=== PATIENT | male | born 1970 | race Caucasian/White ===

== ENCOUNTER 2017-12-04 21:15 | Emergency (ER) | payer SELFPAY ==
[~2017-12-04] VITALS: Ht 175.3 cm; Wt 97.5 kg
[~2017-12-04 21:15] MED LIST: ALPR.5T PO; ASCO500T20 PO; AZIT-21 PO; CHOL2000 PO; CYCL10TA9 PO; FLT05NA16 NSEACH; HYDR1TAB PO; HYDR25CA5 PO; NAPR550T PO; OMG1KC PO
--- OUTSIDE RECORDS SUMMARY | 2017-12-04 21:20 | XMS REPORT ---
Author Author CASEY WADE Organization [employer] Address Unknown Phone Unavailable Care Team Providers Care Towing Pilot Name Role Phone CASEY WADE CP Unavailable Allergies, Adverse Reactions, Alerts Substance Reaction Event Type Doxycycline Info Not Available Drug Allergy Augmentin Info Not Available Drug Allergy Problems Problem Type Condition Code Onset Dates Condition Status Problem Dermatophytosis of groin and perianal area 110.3 Active Problem Unspecified episodic mood disorder 296.90 Active Problem Acute serous otitis media 381.01 Active Assessment Epididymitis N45.1 Active Problem Unspecified vitamin D deficiency 268.9 Active Problem Other and unspecified hyperlipidemia 272.4 Active Medications Medication Code System Code Instructions Start Date End Date Status Dosage Levaquin [facility] [address]-52 500 MG Orally Once a day April 17, 2016March 1 tablet Procedures Procedure Coding System Code Date Office Visit, Est Pt., Level 3 CPT-4 29346 April 17, 2016 Vital Signs Date/Time: April 17, 2016 Cardiac Monitoring Heart Rate 80 bpm Weight 226.2 lbs Height 69 in Blood Pressure Diastolic 84 mmHg Blood Pressure Systolic 126 mmHg Results No Known Results Summary Purpose [employer] Submission
--- OUTSIDE RECORDS SUMMARY | 2017-12-04 21:20 | XMS REPORT ---
Author Author JEFF IRELAND [facility] Address [address] [place] [address] Care Team Providers Care Clinical Education Academic Coordinator Name Role Phone SHU JEFF Unavailable PROBLEMS Type Condition ICD9-CM Code [id number] Code Onset Dates Condition Status SNOMED Code Problem Hypoglycemia E16.2 Active [id number] ALLERGIES Substance Reaction Event Type Date Status Doxycycline Unknown Drug Allergy Oct, Active Sulfazine vomiting Drug Allergy Oct, Active Augmentin Unknown Drug Allergy Oct, Active SOCIAL HISTORY Never Assessed PLAN OF CARE VITAL SIGNS Height 69 in 2016-11-05 Weight 226.1 lbs 2016-11-05 Temperature 97.7 degrees Fahrenheit 2016-11-05 Heart Rate 78 bpm 2016-11-05 Respiratory Rate 20 2016-11-05 BMI 33.39 kg/m2 2016-11-05 Blood pressure systolic 122 mmHg 2016-11-05 Blood pressure diastolic 82 mmHg 2016-11-05 MEDICATIONS Medication Instructions Dosage Frequency Start Date End Date Duration Status Keflex 500 MG Orally Four times a day 1 capsule 6h Oct, Oct, 10 day(s) Active RESULTS No Results PROCEDURES No Known procedures IMMUNIZATIONS No Known Immunizations MEDICAL (GENERAL) HISTORY Type Description Date Surgical History tonsillectomy and adenoidectomy
--- OUTSIDE RECORDS SUMMARY | 2017-12-04 21:20 | XMS REPORT ---
Author JEFF Goldberg Organization [employer] Address Unknown Phone Unavailable Care Team Providers Care Sock Lining Examiner Name Role Phone JEFF IRELAND CP Unavailable Allergies, Adverse Reactions, Alerts Substance Reaction Event Type Doxycycline Info Not Available Drug Allergy Augmentin Info Not Available Drug Allergy Problems Problem Type Condition Code Onset Dates Condition Status Problem Dermatophytosis of groin and perianal area 110.3 Active Problem Unspecified episodic mood disorder 296.90 Active Problem Acute serous otitis media 381.01 Active Assessment Bronchitis J40 Active Problem Unspecified vitamin D deficiency 268.9 Active Problem Other and unspecified hyperlipidemia 272.4 Active Medications Medication Code System Code Instructions Start Date End Date Status Dosage Keflex [facility] [address]-97 500 MG Orally Four times a day Aug 06, 2016 Aug 16, 2016 1 capsule PredniSONE [facility] [address]-70 20 mg Orally Once a day Aug 06, 2016 Aug 11, 2016 2 tablets Procedures Procedure Coding System Code Date Office Visit, Est Pt., Level 3 CPT-4 58685 Aug 06, 2016 Vital Signs Date/Time: Aug 06, 2016 Cardiac Monitoring Heart Rate 76 bpm Weight 233.6 lbs Height 69 in BMI 34.49 Index Blood Pressure Diastolic 84 mmHg Blood Pressure Systolic 132 mmHg Results No Known Results Summary Purpose [employer] Submission
--- OUTSIDE RECORDS SUMMARY | 2017-12-04 21:21 | XMS REPORT | Continuity of Care Document ---
Author Author [facility] Address Unknown Phone Unavailable Allergies Active Description Code Type Severity Reaction Onset Reported/Identified Relationship to Patient Clinical Status Yes Augmentin Drug Allergy 01/25/2009 Yes Augmentin Drug Allergy N/A N/A 01/25/2009 Yes sulfa drug Drug Allergy 01/25/2009 Yes amoxicillin [id number] Drug Allergy Mild N/A 10/30/2009 Yes clavulanic acid [id number] Drug Allergy Mild N/A 10/30/2009 Yes diphenhydramine [id number] Drug Allergy Mild N/A 10/30/2009 Yes prochlorperazine edisylate [id number] Drug Allergy Unknown N/A 2011 Yes prochlorperazine maleate [id number] Drug Allergy Unknown N/A 08/06/2012 Yes doxycycline [id number] Drug Allergy Mild N/A 12/08/2012 Yes levofloxacin [id number] Drug Allergy Mild N/A 12/08/2012 Yes hydroxyzine HCl [id number] Drug Allergy Unknown N/A 06/04/2013 Yes hydroxyzine pamoate [id number] Drug Allergy Unknown N/A 06/04/2013 Medications There is no data. Problems Date Dx Coded Attending Type Code Diagnosis Diagnosed By 05/12/2008 JEFF IRELAND APRN V58.69 MEDICATION HIGH RISK 05/12/2008 V58.69 MEDICATION HIGH RISK 05/12/2008 V58.69 MEDICATION HIGH RISK 05/12/2008 ANGELA BUSH DO V58.69 MEDICATION HIGH RISK 05/12/2008 ANGELA BUSH DO V58.69 MEDICATION HIGH RISK 05/12/2008 JEFF IRELAND APRN V58.69 MEDICATION HIGH RISK 06/03/2008 JEFF IRELAND APRN 300.01 AN PANIC DIS W/O AGORA 06/03/2008 300.01 AN PANIC DIS W/O AGORA 06/03/2008 300.01 AN PANIC DIS W/O AGORA 06/03/2008 ANGELA BUSH DO 300.01 AN PANIC DIS W/O AGORA 06/03/2008 ANGELA BUSH DO 300.01 AN PANIC DIS W/O AGORA 06/03/2008 JEFF IRELAND APRN 300.01 AN PANIC DIS W/O AGORA 01/25/2009 JEFF IRELAND APRN 789.00 abdominal pain 01/25/2009 789.00 ABDOMINAL PAIN 01/25/2009 789.00 ABDOMINAL PAIN 01/25/2009 ANGELA BUSH DO 789.00 ABDOMINAL PAIN 01/25/2009 ANGELA BUSH DO 789.00 ABDOMINAL PAIN 01/25/2009 JEFF IRELAND APRN 789.00 abdominal pain 05/11/2009 JEFF IRELAND APRN 919.5 INSECT BITE INFECTED 05/11/2009 919.5 INSECT BITE INFECTED 05/11/2009 919.5 INSECT BITE INFECTED 05/11/2009 ANGELA BUSH DO 919.5 INSECT BITE INFECTED 05/11/2009 ANGELA BUSH DO 919.5 INSECT BITE INFECTED 05/11/2009 JEFF IRELAND APRN 919.5 INSECT BITE INFECTED 06/07/2009 JEFF IRELAND APRN V04.81 FLU SHOT 06/07/2009 V04.81 FLU SHOT 06/07/2009 V04.81 FLU SHOT 06/07/2009 ANGELA BUSH DO V04.81 FLU SHOT 06/07/2009 ANGELA BUSH DO V04.81 FLU SHOT 06/07/2009 JEFF IRELAND APRN V04.81 FLU SHOT 06/22/2009 JEFF IRELAND APRN V03.82 PCV7 PCV23, STREPTOCOCCUS PNEUMONIAE [PNEUMOCOCCUS] 06/22/2009 V03.82 PCV7 PCV23, STREPTOCOCCUS PNEUMONIAE [PNEUMOCOCCUS] 06/22/2009 V03.82 PCV7 PCV23, STREPTOCOCCUS PNEUMONIAE [PNEUMOCOCCUS] 06/22/2009 ANGELA BUSH DO V03.82 PCV7 PCV23, STREPTOCOCCUS PNEUMONIAE [PNEUMOCOCCUS] 06/22/2009 ANGELA BUSH DO V03.82 PCV7 PCV23, STREPTOCOCCUS PNEUMONIAE [PNEUMOCOCCUS] 06/22/2009 JEFF IRELAND APRN V03.82 PCV7 PCV23, STREPTOCOCCUS PNEUMONIAE [PNEUMOCOCCUS] 08/27/2009 JEFF IRELAND APRN 461.9 ACUTE SINUSITIS, UNSPECIFIED 08/27/2009 461.9 ACUTE SINUSITIS, UNSPECIFIED 08/27/2009 461.9 ACUTE SINUSITIS, UNSPECIFIED 08/27/2009 EMERSON BUSH DOA K 461.9 ACUTE SINUSITIS, UNSPECIFIED 08/27/2009 BUSH DO, ANGELA K 461.9 ACUTE SINUSITIS, UNSPECIFIED 08/27/2009 JEFF IRELAND APRN 461.9 ACUTE SINUSITIS, UNSPECIFIED 10/10/2009 JEFF IRELAND APRN 382.00 OTITIS MEDIA ACUTE WITHOUT SPONTANEOUS RUPTURE EARDRUM 10/10/2009 382.00 OTITIS MEDIA ACUTE WITHOUT SPONTANEOUS RUPTURE EARDRUM 10/10/2009 382.00 OTITIS MEDIA ACUTE WITHOUT SPONTANEOUS RUPTURE EARDRUM 10/10/2009 EMERSON BUSH DOA K 382.00 OTITIS MEDIA ACUTE WITHOUT SPONTANEOUS RUPTURE EARDRUM 10/10/2009 RACHELLE OBANDO ANGELA K 382.00 OTITIS MEDIA ACUTE WITHOUT SPONTANEOUS RUPTURE EARDRUM 10/10/2009 JEFF IRELAND APRN 382.00 OTITIS MEDIA ACUTE WITHOUT SPONTANEOUS RUPTURE EARDRUM 11/18/2009 JEFF IRELAND APRN 780.79 MALAISE AND FATIGUE 11/18/2009 780.79 MALAISE AND FATIGUE 11/18/2009 780.79 MALAISE AND FATIGUE 11/18/2009 RACHELLE OBANDO ANGELA K 780.79 MALAISE AND FATIGUE 11/18/2009 RACHELLE OBANDO ANGELA K 780.79 MALAISE AND FATIGUE 11/18/2009 JEFF IRELAND APRN 780.79 MALAISE AND FATIGUE 03/30/2010 JEFF IRELAND APRN 382.9 UNSPECIFIED OTITIS MEDIA 03/30/2010 382.9 UNSPECIFIED OTITIS MEDIA 03/30/2010 382.9 UNSPECIFIED OTITIS MEDIA 03/30/2010 EMERSON BUSH DOA K 382.9 UNSPECIFIED OTITIS MEDIA 03/30/2010 RACHELLE OBANDO ANGELA K 382.9 UNSPECIFIED OTITIS MEDIA 03/30/2010 JEFF IRELAND APRN 382.9 UNSPECIFIED OTITIS MEDIA 05/23/2010 JEFF IRELAND APRN 455.6 HEMORRHOIDS NOS 05/23/2010 455.6 HEMORRHOIDS NOS 05/23/2010 455.6 HEMORRHOIDS NOS 05/23/2010 EMERSON BUSH DOA K 455.6 HEMORRHOIDS NOS 05/23/2010 RACHELLE OBANDO ANGELA K 455.6 HEMORRHOIDS NOS 05/23/2010 JEFF IRELAND APRN 455.6 HEMORRHOIDS NOS 08/06/2012 Ot 300.00 ANXIETY STATE NOS 08/06/2012 Ot 300.01 PANIC DISORDER WITHOUT AGORAPHOBIA 09/26/2012 JEFF IRELAND APRN 268.9 VITAMIN D DEFICIENCY 09/26/2012 JEFF IRELAND APRN 272.4 HYPERLIPIDEMIA 09/26/2012 268.9 VITAMIN D DEFICIENCY 09/26/2012 272.4 HYPERLIPIDEMIA 09/26/2012 268.9 VITAMIN D DEFICIENCY 09/26/2012 272.4 HYPERLIPIDEMIA 09/26/2012 BUSH DO, ANGELA K 268.9 VITAMIN D DEFICIENCY 09/26/2012 BUSH DO, ANGELA K 272.4 HYPERLIPIDEMIA 09/26/2012 BUSH DO, ANGELA K 268.9 VITAMIN D DEFICIENCY 09/26/2012 BUSH DO, ANGELA K 272.4 HYPERLIPIDEMIA 12/08/2012 Ot 466.0 ACUTE BRONCHITIS 12/08/2012 Ot 780.60 FEVER, UNSPECIFIED 03/03/2013 110.3 DERMATOPHYTOSIS OF GROIN AND PERIANAL AREA 03/03/2013 381.01 ACUTE SEROUS OTITIS MEDIA 03/03/2013 BUSH DO, ANGELA K 110.3 DERMATOPHYTOSIS OF GROIN AND PERIANAL AREA 03/03/2013 BUSH DO, ANGELA K 381.01 ACUTE SEROUS OTITIS MEDIA 03/03/2013 BUSH DO, ANGELA K 110.3 DERMATOPHYTOSIS OF GROIN AND PERIANAL AREA 03/03/2013 BUSH DO, ANGELA K 381.01 ACUTE SEROUS OTITIS MEDIA 06/05/2013 LEONA , JULIANA K Ot 300.00 ANXIETY STATE NOS 06/05/2013 LEONA OBANDO JULIANA K Ot 786.50 CHEST PAIN NOS 06/05/2013 LEONA , JULIANA K Ot 786.52 PAINFUL RESPIRATION 07/03/2013 BUSH DO, ANGELA K 296.90 MOOD DISORDER 07/03/2013 BUSH DO, ANGELA K 296.90 MOOD DISORDER 08/25/2013 KAREN CHRISTIANSON MD Ot 300.00 ANXIETY STATE NOS 08/25/2013 KAREN CHRISTIANSON MD Ot 465.9 ACUTE URI NOS 03/05/2016 YANIV HARKINS MD Ot 300.4 DYSTHYMIC DISORDER 03/05/2016 YANIV HARKINS MD Ot 397.0 TRICUSPID VALVE DISEASE 03/05/2016 YANIV HARKINS MD Ot 424.0 MITRAL VALVE DISORDER 03/05/2016 YANIV HARKINS MD Ot 785.1 PALPITATIONS Procedures Code Description [place] [address] CMP 07/30/2012 19722 LIPID PANEL 07/30/2012 05623 VITAMIN D 25-HYDROXY (D2,D3 , TOTAL) 07/30/2012 60711 TESTOSTERONE FREE 07/30/2012 62460 TSH 07/30/2012 10418 CBC 07/30/2012 89348 LIPID PANEL 09/26/2012 81040 VITAMIN D 25-HYDROXY (D2,D3 , TOTAL) 09/26/2012 51385 CMP 07/03/2013 37421 LIPID PANEL 07/03/2013 15555 MAGNESIUM 07/03/2013 88335 TSH 07/03/2013 19900 CBC 07/03/2013 Results There is no data. Encounters ACCT No. Visit Date/Time Discharge Status Pt. Type Provider Facility Loc./Unit Complaint [id number] 08/29/2013 12:56:00 08/29/2013 23:59:59 CLS Outpatient ANGELA BUSH DO [id number] 07/03/2013 10:56:00 07/03/2013 23:59:59 CLS Outpatient ANGELA BUSH DO [id number] 09/26/2012 16:13:00 09/26/2012 23:59:59 CLS Outpatient JEFF IRELAND APRN [id number] 07/30/2012 15:46:00 07/30/2012 23:59:59 CLS Outpatient JEFF IRELAND APRN [id number] 03/03/2013 17:41:00 Document Registration [id number] 01/30/2013 14:35:00 Document Registration [id number] 10/27/2013 07:46:00 10/27/2013 23:59:59 CLS Outpatient YANIV HARKINS MD [facility] CARD [id number] 08/25/2013 11:33:00 08/25/2013 13:05:00 DIS Emergency KAREN CHRISTIANSON MD [facility] ER [id number] 06/04/2013 22:29:00 06/05/2013 00:29:00 DIS Emergency JULIANA DELGADILLO DO [facility] ER [id number] 12/08/2012 20:06:00 Document Registration [id number] 08/06/2012 16:39:00 Document Registration
[2017-12-04] MEDS ORDERED: TETRACAINE 0.5% OPHTH SOLN 4 ML BTL (SINGLE DOSE ONLY) ONE (21:37)
[2017-12-04] MEDS ORDERED: FLUORESCEIN (FLUOR-I-STRIPS) 1 MG STRP ONE (21:37)
[2017-12-04 21:56] VITALS: BP 138/95
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
[2017-12-04] MEDS ORDERED: TETRACAINE 0.5% OPHTH SOLN 4 ML BTL (SINGLE DOSE ONLY) OU ONE (22:00)
[2017-12-04] MEDS ORDERED: FLUORESCEIN (FLUOR-I-STRIPS) 1 MG STRP OU ONE (22:00)
== END 2017-12-04 21:56 | disposition home or self-care (01) ==
LOC: EDUNIT# 21:15 → ER 21:16
DX: T26.61XA Corrosion of cornea and conjunctival sac, right eye, initial encounter (principal); F41.9 Anxiety disorder, unspecified; Z88.1 Allergy status to other antibiotic agents; Z88.8 Allergy status to other drugs, medicaments and biological substances; Z79.52 Long term (current) use of systemic steroids
CPT/HCPCS: 99282

== ENCOUNTER 2019-08-18 16:11 | Emergency (ER) | payer OTHER ==
[~2019-08-18] VITALS: Ht 171 cm; Wt 103.0 kg
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
[2019-08-18] MEDS ORDERED: ESCI10TA PO (16:41)
[2019-08-18] MEDS ORDERED: ALPR0.5T PO (16:41)
[2019-08-18] MEDS ORDERED: ALPRAZolam 0.5 MG (XANAX) TAB PO SCH (16:45)
[2019-08-18 17:48] VITALS: BP 144/99
== END 2019-08-18 17:48 | disposition home or self-care (01) ==
LOC: EDUNIT# 16:11 → ER 16:13
DX: F41.9 Anxiety disorder, unspecified (principal); Z88.0 Allergy status to penicillin; Z88.1 Allergy status to other antibiotic agents; Z88.8 Allergy status to other drugs, medicaments and biological substances; Z79.51 Long term (current) use of inhaled steroids; Z90.89 Acquired absence of other organs; Z87.828 Personal history of other (healed) physical injury and trauma
CPT/HCPCS: 99283

== ENCOUNTER 2020-07-02 18:52 | Emergency (ER) | payer BC, OTHER ==
[~2020-07-02] VITALS: Ht 175 cm; Wt 97.0 kg
[~2020-07-02 18:52] MED LIST changes: +ALPR0.5T PO; +ESCI10TA PO
--- NOTE | 2020-07-02 19:18 | NUR ---
Pt states that after dinner he started "feeling funny" and seeing flashes of light. States he has a hx of low blood sugar so he checked his blood sugar which was in the normal range over 100. States he checked it again within a couple of minutes and it had dropped over 20 points; states he checked it again a couple of minutes later and it dropped another 20 points. States he then had a panic attack, which is normal for him. Pt is A&Ox4; states the "funny feeling" and flashes of light have resolved. Pt states he was able to selfe-resolve the panic attack. FSBS is 116. Pt reports he feels better after drinking orange juice prior to arrival.
--- NOTE | 2020-07-02 19:25 | NUR ---
Neuro exam is negative for any deficits.
--- NOTE | 2020-07-02 19:39 | NUR ---
After speaking with the patient further he explains that he has anxiety daily that he usually resolves with exercise. States that he did walk a couple of miles today. He also states that he has been on a diet and may not have eaten enough calories today. Pt states he still feels a little anxious. Dr. Reza notified.
[2020-07-02 19:54] LABS: BILIRUBIN,URINE NEGATIVE (NEGATIVE); CLARITY,URINE CLEAR; COLOR,URINE YELLOW; GLUCOSE, URINE (UA) NEGATIVE (NEGATIVE); KETONES,URINE NEGATIVE (NEGATIVE); LEUKOCYTE ESTERASE ,URINE NEGATIVE (NEGATIVE); NITRITE,URINE NEGATIVE (NEGATIVE); PROTEIN,URINE NEGATIVE (NEGATIVE)
[2020-07-02 20:02] LABS: BASOPHILS % (AUTO) 1 % (0-10); EOSINOPHILS % (AUTO) 0 % (0-10); HEMATOCRIT 43 % (40-54); HEMOGLOBIN 14.2 g/dL (13.3-17.7); LYMPHOCYTES # (AUTO) 2.1 10^3/uL (1.0-4.0); LYMPHOCYTES % (AUTO) 40 % (12-44); MEAN CORPUSCULAR HEMOGLOBIN 29 pg (25-34); MEAN CORPUSCULAR HGB CONC 33 g/dL (32-36); MEAN CORPUSCULAR VOLUME 87 fL (80-99); MEAN PLATELET VOLUME 10.5 fL (9.0-12.2); MONOCYTES # (AUTO) 0.4 10^3/uL (0.0-1.0); MONOCYTES % (AUTO) 8 % (0-12); NEUTROPHILS # (AUTO) 2.8 10^3/uL (1.8-7.8); NEUTROPHILS % (AUTO) 52 % (42-75); PLATELET COUNT 233 10^3/uL (130-400); WHITE BLOOD COUNT 5.4 10^3/uL (4.3-11.0)
[2020-07-02 20:04] LABS: AMORPHOUS SEDIMENT,UR RARE AMOR URATES /LPF; BACTERIA,URINE TRACE /HPF; WBC,URINE 0-2 /HPF
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
[2020-07-02 20:18] LABS: ALANINE AMINOTRANSFERASE 26 U/L (0-55); ALBUMIN 4.3 GM/DL (3.2-4.5); ALKALINE PHOSPHATASE 75 U/L (40-136); BILIRUBIN,TOTAL 0.5 MG/DL (0.1-1.0); BUN/CREATININE RATIO 11; CALCIUM 9.2 MG/DL (8.5-10.1); CARBON DIOXIDE 24 MMOL/L (21-32); CHLORIDE 104 MMOL/L (98-107); CREATININE SERUM 1.23 MG/DL (0.60-1.30); GFR ESTIMATED > 60; GLUCOSE 129 MG/DL (70-105); POTASSIUM 3.5 MMOL/L (3.6-5.0); SODIUM 141 MMOL/L (135-145); TOTAL PROTEIN 6.8 GM/DL (6.4-8.2)
[2020-07-02 20:52] VITALS: BP 146/86
--- NOTE | 2020-07-02 20:54 | NUR ---
D/C instructions discussed and understanding verbalized. Pt reports he feels better and ambulated from ER without incident.
== END 2020-07-02 20:57 | disposition home or self-care (01) ==
LOC: EDUNIT# 18:52 → ER 18:54
DX: E16.2 Hypoglycemia, unspecified (principal); F43.0 Acute stress reaction; F41.9 Anxiety disorder, unspecified; Z83.3 Family history of diabetes mellitus; Z87.820 Personal history of traumatic brain injury; Z88.1 Allergy status to other antibiotic agents; Z88.8 Allergy status to other drugs, medicaments and biological substances
CPT/HCPCS: 36415; 80053; 81000; 82962; 85025

== ENCOUNTER 2020-10-07 17:53 | Emergency (ER) | payer BC ==
--- NOTE | 2020-10-07 18:00 | NUR ---
Called pt to the back. Pt did not want to come into ED and stated he would like to go outside, walk around and take some deep breaths. Pt reports he feels as if is having an anxiety attack. 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 Pt stated he would come back into the ED if he began experiencing any pain. This nurse stated to pt that I would check with pt and see if pt is ready to be seen in the ED in a few moments. Stated to pt if he was not wanting to be seen in the ED he would be discharged. Pt verbalized understanding.
--- NOTE | 2020-10-07 18:16 | NUR ---
Pt not in waiting room at this time.
== END 2020-10-07 18:17 | disposition left against medical advice (07) ==
LOC: EDUNIT# 17:53 → ER 17:55
DX: F41.9 Anxiety disorder, unspecified (principal)